=== PATIENT | female | born 1950 | race African-American/Black ===

== ENCOUNTER 2018-01-07 08:46 | Outpatient (CLI) | payer MEDICARE | END 2018-01-07 08:47 | disposition home or self-care (01) | LOC: BICMAMMO 08:46 | PROVIDERS: ATTEND Family Medicine | DX: Z12.31 Encounter for screening mammogram for malignant neoplasm of breast (principal); Z80.3 Family history of malignant neoplasm of breast | CPT/HCPCS: 77063; 77067 ==

== ENCOUNTER 2019-07-08 08:22 | Outpatient (CLI) | payer MEDICARE ==
--- NOTE | 2019-07-08 09:11 | MMO ---
Bilateral MAMMO Bilat Screen [facility]. CLINICAL HISTORY: Patient is 69 years old and is seen for screening. The patient has the following family history of breast cancer: sister. The patient has no personal history of cancer. VIEWS: The views performed were: bilateral craniocaudal with tomosynthesis and bilateral mediolateral oblique with tomosynthesis. FILMS COMPARED: The present examination has been compared to prior imaging studies performed at [facility] on 01/07/2018, at [facility] on 12/28/2013 and 06/30/2014, and at [facility] on 12/28/2014. MAMMOGRAM FINDINGS: There are scattered fibroglandular densities. There are stable benign appearing calcifications seen in both breasts. There are no suspicious masses, suspicious calcifications, or new areas of architectural distortion. IMPRESSION: THERE IS NO MAMMOGRAPHIC EVIDENCE OF MALIGNANCY. A ROUTINE FOLLOW-UP MAMMOGRAM IN 1 YEAR IS RECOMMENDED. THE RESULTS OF THIS EXAM WERE SENT TO THE PATIENT. ACR BI-RADS Category 2 - Benign finding MAMMOGRAPHY NOTE: 1. A negative mammogram report should not delay a biopsy if a dominant of clinically suspicious mass is present. 2. Approximately 10% to 15% of breast cancers are not detected by mammography. 3. Adenosis and dense breasts may obscure an underlying neoplasm. Reported by: ELA BAIG MD Electonically Signed: [id number]
--- NOTE | 2019-07-08 11:25 | BD ---
DEXA BONE DENSITY STUDY: HISTORY: Postmenopausal. LUMBAR SPINE BMD (g/cm2) T-SCORE L1 1.295 +2.8 L2 1.385 +3.2 L3 1.350 +2.4 L4 1.202 +1.3 TOTAL 1.302 +2.3 LEFT FEMORAL NECK 0.841 -0.1 TOTAL 1.004 +0.5 IMPRESSION: Normal bone mineral density of the lumbar spine and left femoral neck. POS: OFF
== END 2019-07-08 08:23 | disposition home or self-care (01) ==
LOC: BICMAMMO 08:22
PROVIDERS: ATTEND Family Medicine
DX: Z12.31 Encounter for screening mammogram for malignant neoplasm of breast (principal); Z78.0 Asymptomatic menopausal state; Z80.3 Family history of malignant neoplasm of breast
CPT/HCPCS: 77063; 77067; 77080

== ENCOUNTER 2019-08-05 09:24 | Outpatient (CLI) | payer MEDICARE ==
--- NOTE | 2019-08-05 10:09 | ULT ---
EXAM: Abdominal ultrasound complete: HISTORY: Liver enzyme elevation COMPARISON: None FINDINGS: Coarse heterogeneous liver echogenicity evidence for nonspecific diffuse hepatic parenchymal process. Status post cholecystectomy. The common bile duct is 0.5 cm Visualized pancreas: Unremarkable. Visualized abdominal aorta: Unremarkable. Visualized IVC: Unremarkable. Visualized spleen: Unremarkable. Visualized kidneys: No evidence for hydronephrosis or solid or cystic mass. No mass, abscess, adenopathy, or abnormal fluid collection or other acute process. IMPRESSION: Somewhat coarse liver echogenicity. Status post cholecystectomy.
== END 2019-08-05 09:25 | disposition home or self-care (01) ==
LOC: BICULT 09:24
PROVIDERS: ATTEND Family Medicine
DX: R74.8 Abnormal levels of other serum enzymes (principal); R93.2 Abnormal findings on diagnostic imaging of liver and biliary tract; Z90.49 Acquired absence of other specified parts of digestive tract
CPT/HCPCS: 76700

== ENCOUNTER 2019-09-03 07:15 | Day surgery (SDC) | payer MEDICARE ==
[2019-09-02 13:26] VITALS: BMI 36.0
[2019-09-03] MEDS ORDERED: Lidocaine 1% PF 5 ML VIAL ONE (07:34)
[2019-09-03] MEDS ORDERED: Sodium Bicarbonate 2.5 MEQ/5 ML VIAL ONE (07:34)
[2019-09-03] MEDS ORDERED: Midazolam HCl 2 mg/2 ml Vial ONE (07:34)
[2019-09-03] MEDS ORDERED: Fentanyl 100 MCG/2 ML VIAL ONE (07:34)
[2019-09-03 07:46] LABS: INR-International Normal Ratio 1.2; PTT 26.3 SEC (22.9-36.1); Prothrombin Time 14.7 SEC (12.0-14.7)
[2019-09-03 09:52] VITALS: BP 124/72; TEMP 98.8
--- NOTE | 2019-09-03 10:44 | ULT ---
ULTRASOUND-GUIDED HEPATIC BIOPSY RANDOM: DATE: 09/03/2019 HISTORY: 69-year-old female with elevated liver enzymes. TECHNIQUE: Signed informed consent obtained. Skin over epigastric region prepared and draped in usual sterile fa shion. 25-gauge needle used to apply buffered lidocaine superficially. The rest of the procedure was performed under ultrasound guidance. 17-gauge introducer needle advanced to liver capsule of left lobe. Buffered lidocaine applied along the liver capsule. 18-gauge biopsy needle advanced through the introducer needle in coaxial fashion. Biopsy gun fired, yielding 3.3 cm hepatic core tissue sampl e, which was placed in formalin, and sent to laboratory. Introducer needle removed. Compression applied. Patient tolerated procedure well. No complications. IMPRESSION: Successful random hepatic biopsy of left lobe of liver yielding single 18-gauge 3.3 cm core tissue sa mple.
== END 2019-09-03 11:00 | disposition home or self-care (01) ==
LOC: ULT 07:15
PROVIDERS: ATTEND Physician Assistant Medical
DX: R94.5 Abnormal results of liver function studies (principal); I10 Essential (primary) hypertension; I25.10 Atherosclerotic heart disease of native coronary artery without angina pectoris; I48.91 Unspecified atrial fibrillation; Z79.82 Long term (current) use of aspirin; Z79.899 Other long term (current) drug therapy; Z88.0 Allergy status to penicillin; Z88.7 Allergy status to serum and vaccine; Z95.810 Presence of automatic (implantable) cardiac defibrillator
CPT/HCPCS: 47000; 76942; 85610; 85730; 88307; 88313; J2001; J2250; J3010

== ENCOUNTER 2019-10-31 09:16 | Emergency (ER) | payer MEDICARE ==
[2019-10-31] MEDS ORDERED: Ketorolac Tromethamine 30 MG/ML VIAL ONE (10:50)
[2019-10-31] MEDS ORDERED: HYDROcodone/Acetaminophen 5/325 mg Tablet ONE (10:50)
--- NOTE | 2019-10-31 11:22 | RAD ---
XR Cerv Sp Ap Lat STANDARD HISTORY: Neck pain and shoulder pain FINDINGS: Multilevel degenerative changes are present in the cervical spine. There is loss of cervical lordosis . No fracture, subluxation or bony destruction is identified. IMPRESSION: cervical spondylosis
== END 2019-10-31 12:08 | disposition home or self-care (01) ==
LOC: ERS 09:16
DX: M47.812 Spondylosis without myelopathy or radiculopathy, cervical region (principal); E78.5 Hyperlipidemia, unspecified; E78.00 Pure hypercholesterolemia, unspecified; I10 Essential (primary) hypertension
CPT/HCPCS: 72040; 96372; J1885

== ENCOUNTER 2020-11-24 08:56 | Outpatient (CLI) | payer MEDICARE | END 2020-11-24 08:57 | disposition home or self-care (01) | LOC: BICRAD 08:56 | PROVIDERS: ATTEND Internal Medicine Gastroenterology | DX: R05 Cough (principal); K75.4 Autoimmune hepatitis; J98.4 Other disorders of lung | CPT/HCPCS: 71046 ==

== ENCOUNTER 2023-06-18 16:47 | Emergency (ER) | payer MEDICARE | END 2023-06-18 19:10 | disposition home or self-care (01) | LOC: ERS 16:47 | DX: M25.561 Pain in right knee (principal); I10 Essential (primary) hypertension; E78.00 Pure hypercholesterolemia, unspecified; Z79.899 Other long term (current) drug therapy; Z79.82 Long term (current) use of aspirin ==

== ENCOUNTER 2023-09-10 13:54 | Outpatient (CLI) | payer MEDICARE | END 2023-09-10 13:55 | disposition home or self-care (01) | LOC: BICMAMMO 13:54 | PROVIDERS: ATTEND Physician Assistant | DX: Z12.31 Encounter for screening mammogram for malignant neoplasm of breast (principal); Z80.3 Family history of malignant neoplasm of breast | CPT/HCPCS: 77063; 77067 ==

== ENCOUNTER 2023-09-30 14:11 | Outpatient (CLI) | payer MEDICARE | END 2023-09-30 14:12 | disposition home or self-care (01) | LOC: BICMAMMO 14:11 | PROVIDERS: ATTEND Physician Assistant | DX: Z13.820 Encounter for screening for osteoporosis (principal); M85.852 Other specified disorders of bone density and structure, left thigh; Z78.0 Asymptomatic menopausal state | CPT/HCPCS: 77080 ==

== ENCOUNTER 2024-08-10 06:01 | Day surgery (SDC) | payer MEDICARE ==
[2024-08-09 10:08] VITALS: BMI 32.6
[2024-08-10] MEDS ORDERED: Lidocaine 2% PF 5 ML VIAL ONE (07:04)
[2024-08-10] MEDS ORDERED: PROPOFOL 60 ML ONE (07:04)
[2024-08-10] MEDS ORDERED: PROPOFOL 20 ML ONE (07:35)
[2024-08-10] MEDS ORDERED: PHENYLEPHRINE-NS 100 MCG/ML 10 ML SYRINGE ONE (07:45)
== END 2024-08-10 09:05 | disposition home or self-care (01) ==
LOC: SDC 06:01
PROVIDERS: ATTEND Internal Medicine Gastroenterology
PROC: 0DBL8ZZ Excision of Transverse Colon, Via Natural or Artificial Opening Endoscopic (ICD-10-PCS; principal; 2024-08-10)
DX: Z12.11 Encounter for screening for malignant neoplasm of colon (principal); D12.3 Benign neoplasm of transverse colon; K57.30 Diverticulosis of large intestine without perforation or abscess without bleeding; I48.91 Unspecified atrial fibrillation; I10 Essential (primary) hypertension; I25.10 Atherosclerotic heart disease of native coronary artery without angina pectoris; Z79.82 Long term (current) use of aspirin; Z79.01 Long term (current) use of anticoagulants; Z79.899 Other long term (current) drug therapy; Z88.0 Allergy status to penicillin
CPT/HCPCS: 45385; J2704; 88305

== ENCOUNTER 2024-11-08 13:47 | Outpatient (CLI) | payer MEDICARE | END 2024-11-08 13:48 | disposition home or self-care (01) | LOC: BICMAMMO 13:47 | PROVIDERS: ATTEND Nurse Practitioner Family | DX: Z12.31 Encounter for screening mammogram for malignant neoplasm of breast (principal); Z80.3 Family history of malignant neoplasm of breast | CPT/HCPCS: 77063; 77067 ==